=== PATIENT | male | born 1995 | race Caucasian/White ===

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

== ENCOUNTER 2017-02-28 10:57 | Emergency (ER) | payer BC ==
[2017-02-28 12:22] VITALS: BP 160/75
--- NOTE | 2017-02-28 12:30 | UC ---
Skin Complaint HPI - HPI Summary HPI Summary: 22 y/o male presents to the urgent care c/o a circular rash in his back for the past 6 days. Pt reports rash itches at times. Pt denies fever, pain, Hx of STD' s abdominal pain, N/V/D. Pt has not applied anything to alleviate symptoms. - History of Current Complaint Chief Complaint: UCSkin Time Seen by Provider: 02/28/17 12:28 Stated Complaint: SKIN COMPLAINT ON BACK Hx Obtained From: Patient Onset/Duration: Gradual Onset, Lasting Days - 6 days, Still Present, Worse Since - yesterday Skin Exposure Onset/Duration: Days Ago - 6 Timing: Constant Onset Severity: Mild Current Severity: Moderate Pain Intensity: 0 Pain Scale Used: 0-10 Numeric Location: Discrete - left side of his mid back Character: Pruritus Aggravating Factor(s): Humidity, Touch Alleviating Factor(s): Nothing Associated Signs & Symptoms: Positive: Negative. Negative: Fever, Chills, Red Streaks, Joint Swelling - Allergy/Home Medications Allergies/Adverse Reactions: Allergies Allergy/AdvReac Type Severity Reaction Status Date / Time No Known Allergies Allergy Verified 02/28/17 12:22 Review of Systems Constitutional: Negative Skin: Rash - circular rash on left side of mid back Eyes: Negative ENT: Negative Respiratory: Negative Cardiovascular: Negative Gastrointestinal: Negative Genitourinary: Negative Motor: Negative Neurovascular: Negative Musculoskeletal: Negative Neurological: Negative Psychological: Negative Is Patient Immunocompromised?: No All Other Systems Reviewed And Are Negative: Yes PMH/Surg Hx/FS Hx/Imm Hx Previously Healthy: Yes - Pt denies PMHX Other History Of: Negative For: HIV - Surgical History Surgical History: Yes Surgery Procedure, Year, and Place: right shoulder surgery 2016 & 2017 - Family History Known Family History: Positive: None - Pt denies FMHX - Social History Occupation: Student Lives: With Family Alcohol Use: None Substance Use Type: None Smoking Status (MU): Never Smoked Tobacco Have You Smoked in the Last Year: No - Immunization History Vaccination Up to Date: Yes Physical Exam Triage Information Reviewed: Yes Vital Signs: Initial Vital Signs Temp 98.2 F 02/28/17 12:17 Pulse 90 02/28/17 12:17 Resp 20 02/28/17 12:17 BP 160/75 02/28/17 12:17 - Additional Comments Vital Signs Reviewed: Yes General: well appearing, well nourished male in no acute apparent pain distress, sitting comfortably on examining table Eye Exam: Normal Eyes: Positive: Conjunctiva Clear - PERRLA< EOMI, fundi grossly normal ENT: Positive: Normal ENT inspection, Hearing grossly normal, Pharynx normal, TMs normal Neck: Positive: Supple, Nontender, No Lymphadenopathy Respiratory: Positive: Chest non-tender, Lungs clear, Normal breath sounds, No respiratory distress Cardiovascular: Positive: RRR, No Murmur, Pulses Normal, Brisk Capillary Refill Abdomen Description: Positive: Nontender, No Organomegaly, Soft. Negative: CVA Tenderness (R), CVA Tenderness (L) Bowel Sounds: Positive: Present Musculoskeletal: Positive: Strength Intact, ROM Intact, No Edema Neurological: Positive: Alert, Muscle Tone Normal Psychological Exam: Normal Skin: Positive: Lateral side of left side of mid back tight with an erythematous scaling lesion with a central clearance and raised borders about 2cm x2.5cm in size. non tender to palpation, no discharge observed Course/Dx - Course Course Of Treatment: 22 y/o male presents to the urgent care c/o a circular rash in his back for the past 6 days. Pt reports rash itches at times. Pt denies fever, pain, Hx of STD's abdominal pain, N/V/D. Pt has not applied anything to alleviate symptoms. Hx obtained. Pt with Tinea corporis on the left side of mid back on examination. Pt BP elevated today, advised to decrease salt in his diet, monitor BP and if it continues to be elevated to f/u with his PCP. Pt Rx Lamisil topical cream for Tinea corporis. Advised tokeep his back dry after showering. Pt understood and agreed with D/C instructions. - Differential Diagnoses - Skin Complaint Differential Diagnoses: Abscess, Contact Dermatitis, Local Allergic Reaction, MRSA, Tinea, Urticaria - Diagnoses Provider Diagnoses: 1- Tinea Corporis. 2- Elevated BP w/o Hx of HTN Discharge - Discharge Plan Condition: Stable Disposition: HOME Prescriptions: Terbinafine HCl (Topical) [Lamisil At] 1 % EX Q24HR #1 cre Patient Education Materials: Tinea Corporis (ED), Low Sodium Diet (ED) Referrals: Adair Hinton MD [Primary Care Provider] - If Needed Additional Instructions: 1-Please apply medication as directed. 2-After you shower dry your back well 3-If symptoms do not improve or worsen please f/u with your PCP or return to the urgent care for further evaluation and treatment. 4-Your BP is elevated today. please decrease salt in your diet, monitor BP and if it continues to be elevated please f/u with your PCP for further management
== END 2017-02-28 12:51 | disposition home or self-care (01) ==
LOC: UCCORT 10:57
DX: B35.4 Tinea corporis (principal); R03.0 Elevated blood-pressure reading, without diagnosis of hypertension
CPT/HCPCS: 99212; G0463

== ENCOUNTER 2018-07-05 09:22 | Emergency (ER) | payer BC ==
[2018-07-05 09:51] VITALS: BP 148/82
[2018-07-05] MEDS ORDERED: Tetan/Diph/Pertus SYR(Tdap)* 0.5 ML SYR(BOOSTRIX) use SYR IM ONE (10:18)
--- NOTE | 2018-07-05 11:03 | UC ---
Laceration HPI - HPI Summary HPI Summary: Pt presents with c/o laceration to distal left thumb. Pt was cutting a bagel this morning and sliced thumb with kitchen knife. Unsure of last tetanus. - History Of Current Complaint Chief Complaint: UCLaceration Stated Complaint: LEFT THUMB LACERATION Time Seen by Provider: 07/05/18 10:07 Hx Obtained From: Patient Laceration Location: Finger - left thumb Mechanism Of Injury: Sharp Trauma Onset/Duration: Sudden Onset Severity: Mild Pain Intensity: 0 Pain Scale Used: 0-10 Numeric Aggravating Factors: Position, Movement Related History: Dominant Hand Right - Allergies/Home Medications Allergies/Adverse Reactions: Allergies Allergy/AdvReac Type Severity Reaction Status Date / Time No Known Allergies Allergy Verified 07/05/18 09:46 Home Medications: Home Medications NK [No Home Medications Reported] 07/05/18 [History Confirmed 07/05/18] PMH/Surg Hx/FS Hx/Imm Hx Previously Healthy: Yes Other History Of: Negative For: HIV - Surgical History Surgical History: Yes Surgery Procedure, Year, and Place: right shoulder surgery 2015 & 2017 - Family History Known Family History: Positive: None - Pt denies FMHX, Cardiac Disease - Social History Occupation: Student Lives: With Family Alcohol Use: Occasionally Substance Use Type: None Smoking Status (MU): Never Smoked Tobacco Have You Smoked in the Last Year: No - Immunization History Most Recent Tetanus Shot: unknown Vaccination Up to Date: Yes Review of Systems All Other Systems Reviewed And Are Negative: Yes Constitutional: Positive: Negative Skin: Positive: Other - laceration left htumb Eyes: Positive: Negative ENT: Positive: Negative Respiratory: Positive: Negative Cardiovascular: Positive: Negative Gastrointestinal: Positive: Negative Genitourinary: Positive: Negative Motor: Positive: Negative Neurovascular: Positive: Negative Musculoskeletal: Positive: Myalgia - at laceration site Neurological: Positive: Negative Psychological: Positive: Negative Is Patient Immunocompromised?: No Physical Exam Triage Information Reviewed: Yes Appearance: Well-Appearing, Other: - pale Vital Signs: Initial Vital Signs Temp 98 F 07/05/18 09:47 Pulse 89 07/05/18 09:47 Resp 18 07/05/18 09:47 BP 148/82 07/05/18 09:47 Pulse Ox 100 07/05/18 09:47 Vital Signs Reviewed: Yes Eye Exam: Normal ENT Exam: Normal ENT: Positive: Hearing grossly normal Dental Exam: Normal Respiratory: Positive: No respiratory distress Musculoskeletal Exam: Normal Musculoskeletal: Positive: Strength Intact, ROM Intact Neurological Exam: Normal Psychological Exam: Normal Skin Exam: Other - laceration diatal left thumb Laceration Repair - Laceration Repair 1 Description: Linear Laceration Size After Repair: Length (cm) - 2, Width (mm) - 2, Depth (mm) - 2 Modified For Repair: No Irrigation With Pressure Irrigation Device: Yes Closure Material: Skin Adhesive, SteriStrips Closure Method: Single Layer Suture Of: Skin Laceration Course/Dx - Differential Dx - Laceration/Wound Differental Diagnoses: Cellulitis, Laceration, Tendon Laceration - Diagnosis Provider Diagnosis: Laceration of thumb Discharge - Sign-Out/Discharge Documenting (check all that apply): Patient Departure All imaging exams completed and their final reports reviewed: No Studies - Discharge Plan Condition: Stable Disposition: HOME Patient Education Materials: Laceration (DC), Skin Adhesive Care (ED) Referrals: Adair Hinton MD [Primary Care Provider] - If Needed Additional Instructions: PLEASE FOLLOW UP WITH YOUR PCP OR RETURN TO CLINIC IF YOUR SYMPTOMS WORSEN. PLEASE NOTE, THAT WE HAVE DISCUSSED THE CARE OF YOUR LACERATION AND THE ADHESIVE REPAIR CARE. PLEASE DO NOT APPLY ANTIBIOTIC OINTMENT AND PLEASE KEEP DRY AND CLEAN. YOU MAY GET THE WOUND WET AFTER 72 HOURS. PLEASE MONITOR FOR SIGNS AND SYMPTOMS OF INFECTION INCLUDING BUT NOT LIMITED TO : FEVER, CHILLS, RED STREAKING PURULENT DISCHARGE AND WORSENING PAIN. - Billing Disposition and Condition Condition: STABLE Disposition: Home - Attestation Statements Provider Attestation: I was available for consult. This patient was seen by the RASHEED. The patient was not presented to, seen by, or examined by me. -Dawna
== END 2018-07-05 10:30 | disposition home or self-care (01) ==
LOC: UCCORT 09:22
DX: S61.012A Laceration without foreign body of left thumb without damage to nail, initial encounter (principal); W26.0XXA Contact with knife, initial encounter; Y92.9 Unspecified place or not applicable
CPT/HCPCS: 12001; 90471; 90715; 99211; G0463